=== PATIENT | male | born 1985 | race Two or more races ===

== ENCOUNTER 2016-10-23 04:57 | Emergency (ER) | payer SELFPAY ==
[~2016-10-23] VITALS: Ht 162.6 cm; Wt 63.5 kg
[2016-10-23 05:12] VITALS: BP 144/94
[2016-10-23] MEDS ORDERED: BACI/NEOM/POLY B OINT PKT 1 UDPKT PACKET TP ONE (06:30)
[2016-10-23] MEDS ORDERED: LIDOCAINE 1%-EPI 1:100,000 20 ML VIAL TP ONE (06:30)
== END 2016-10-23 06:59 | disposition home or self-care (01) ==
LOC: ER 05:00
DX: S01.81XA Laceration without foreign body of other part of head, initial encounter (principal); V49.50XA Passenger injured in collision with unspecified motor vehicles in traffic accident, initial encounter; Y93.89 Activity, other specified; Y92.89 Other specified places as the place of occurrence of the external cause; Y99.9 Unspecified external cause status
CPT/HCPCS: A4606; Z7610

== ENCOUNTER 2016-10-28 23:17 | Emergency (ER) | payer SELFPAY | END 2016-10-29 01:25 | disposition home or self-care (01) | DX: S01.511D Laceration without foreign body of lip, subsequent encounter (principal); S01.81XD Laceration without foreign body of other part of head, subsequent encounter | CPT/HCPCS: 99281; A4606; A6402; Z7610 ==